=== PATIENT | male | born 2000 | race Two or more races ===

== ENCOUNTER → 2020-08-21 | Outpatient (CLI) | payer OTHER ==
--- NOTE | 2020-08-21 09:42 | RAD ---
MR LUMBAR SPINE WO [id number] Date: 08/21/2020 8:15 AM Indication: LOW BACK PAIN / Spl. Instructions: / History: Comparison: None. Technique: Multi-planar multi-weighted magnetic resonance imaging of the lumbar spine was performed w ithout intravenous contrast using the standard lumbar spine protocol. FINDINGS: The lumbar spine is normally aligned. No acute fracture. Degenerative disc desiccation and disc heigh t loss at L5-S1. Bone marrow signal intensity is normal. The conus terminates at a normal level. No abnormal signal is seen within the visualized distal spina l cord. No clumping of intrathecal nerve roots. No soft tissue abnormality in the visualized abdomen or pelvis. T12-L1: No disc bulge. No facet arthropathy. No significant spinal stenosis or neural foraminal narro wing. L1-L2: No disc bulge. No facet arthropathy. No significant spinal stenosis or neural foraminal narrow ing. L2-L3: No disc bulge. No facet arthropathy. No significant spinal stenosis or neural foraminal narrow ing. L3-L4: No disc bulge. No facet arthropathy. No significant spinal stenosis or neural foraminal narrow ing. L4-L5: Disc bulge. No facet arthropathy. No significant spinal stenosis. Mild left neural foraminal n arrowing. L5-S1: Central/left paracentral disc protrusion with annular tear. No facet arthropathy. Mild spinal canal stenosis. Mild right and severe left lateral recess narrowing with compression of the descendin g left S1 nerve root. No significant neural foraminal narrowing IMPRESSION: Lumbar spondylosis, worst at L5-S1 where a disc protrusion narrows the left lateral recess and compre sses the descending left S1 nerve root. Correlate for radiculopathy. Electronically signed by: Benjamin Velazco MD (08/21/2020 9:39 AM) [id number]
== END ==
LOC: MRI 08:24
PROVIDERS: ATTEND Nurse Practitioner
DX: M47.817 Spondylosis without myelopathy or radiculopathy, lumbosacral region (principal); M51.27 Other intervertebral disc displacement, lumbosacral region
CPT/HCPCS: 72148